=== PATIENT | female | born 2000 | race African-American/Black ===

== ENCOUNTER 2018-02-24 15:02 | Emergency (ER) | payer SELFPAY ==
[~2018-02-24] VITALS: Ht 162.6 cm; Wt 52.2 kg
[2018-02-24 15:39] LABS: Basophils # (auto) 0.1 uL; Basophils % (auto) 0.7 % (0.0-2.0); Eosinophils # (auto) 0 uL; Hematocrit 39.9 % (36.0-46.0); Hemoglobin 13.3 g/dL (12.2-16.2); Lymphocytes % (auto) 7.5 % (10.0-50.0); Mean Corpuscular Hemoglobin 30.2 pg (28.0-32.0); Mean Corpuscular Hgb Conc. 33.5 g/dL (32.0-36.0); Mean Corpuscular Volume 90.3 fL (80.0-100.0); Monocytes % (auto) 7.4 % (0.0-12.0); Neutrophils # (auto) 11.1 uL; Neutrophils % (auto) 84.4 % (37.0-80.0); Platelet Count (auto) 218 10^3/uL (140-450); Red Blood Cells 4.42 10^6/uL (4.0-5.20); Red Cell Distribution Width 13.8 % (11.8-14.3); White Blood Cell 13.2 10^3/uL (4.4-10.8)
[2018-02-24 15:51] LABS: Alanine Aminotransferase 27 U/L (13-56); Albumin 3.8 g/dL (3.4-5.0); Anion Gap 6 (5-15); Aspartate Aminotransferase 25 U/L (15-37); BUN/Creatinine Ratio 10.5; Blood Urea Nitrogen 11 mg/dL (7-18); Calcium 8.4 mg/dL (8.5-10.1); Carbon Dioxide 26 mmol/L (21-32); Chloride 105 mmol/L (98-107); GFR African American 87 mL/min; GFR Non-African American 72 mL/min; Glucose 103 mg/dL (74-106); Magnesium 2.4 mg/dL (1.6-2.6); Potassium 3.3 mmol/L (3.5-5.1); Sodium 137 mmol/L (136-145)
[2018-02-24 15:56] LABS: Alkaline Phosphatase 65 U/L (45-117); Bilirubin, Total 0.6 mg/dL (0.2-1.0); Total Protein 6.8 g/dL (6.4-8.2)
[2018-02-24 16:32] LABS: Urine Pregnacy Test Negative (Negative)
[2018-02-24 16:33] LABS: Urine Bacteria NONE SEEN /hpf (None Seen); Urine Blood Negative /uL (Negative); Urine Mucus FEW (None Seen); Urine Specific Gravity 1.018 (1.001-1.035); Urine WBC 3 /hpf (0 - 5)
[2018-02-24 16:46] LABS: Alcohol, Urine < 3.0 mg/dL (0-5); Amphetamine Screen, Urine NEGATIVE (NEGATIVE); Benzodiazephine Screen, Urine NEGATIVE (NEGATIVE); Cannabinoid Screen, Urine POSITIVE (NEGATIVE); Cocaine Screen, Urine NEGATIVE (NEGATIVE); Opiate Scree,Urine POSITIVE (NEGATIVE); Phencyclidine Screen, Urine NEGATIVE (NEGATIVE)
[2018-02-24 16:53] LABS: Barbiturate Scree,Urine NEGATIVE (NEGATIVE)
[2018-02-24] MEDS ORDERED: SODIUM CHLORIDE 0.9% 1,000 ML IV ONE (17:15)
[2018-02-24 19:30] VITALS: BP 100/64
== END 2018-02-24 20:14 | disposition home or self-care (01) ==
LOC: ER 15:02 → EDBD 15:02 → ER 20:14
DX: N39.0 Urinary tract infection, site not specified (principal); F12.10 Cannabis abuse, uncomplicated
CPT/HCPCS: 36415; 71046; 74176; 80053; 80307; 81001; 81025; 83735; 84484; 85025; 94761; 99285; J7030

== ENCOUNTER 2018-06-18 09:33 | Emergency (ER) | payer SELFPAY ==
[~2018-06-18] VITALS: Ht 160 cm; Wt 53.5 kg
[2018-06-18] MEDS ORDERED: SODIUM CHLORIDE 0.9% 1,000 ML IV ONE (09:49)
[2018-06-18] MEDS ORDERED: LORazepam 2MG/ML-1ML VIAL IV ONE (10:00)
[2018-06-18] MEDS ORDERED: ONDANSETRON HCL 4 MG/2 ML VIAL IV ONE (10:00)
[2018-06-18 10:06] LABS: Urine Pregnacy Test Negative (Negative)
[2018-06-18 10:07] LABS: Urine Bacteria FEW /hpf (None Seen); Urine Blood Negative /uL (Negative); Urine Mucus FEW (None Seen); Urine Specific Gravity 1.043 (1.001-1.035); Urine WBC 10 /hpf (0 - 5)
[2018-06-18 10:20] LABS: Alcohol, Urine < 3.0 mg/dL (0-5); Amphetamine Screen, Urine NEGATIVE (NEGATIVE); Barbiturate Scree,Urine NEGATIVE (NEGATIVE); Benzodiazephine Screen, Urine NEGATIVE (NEGATIVE); Cannabinoid Screen, Urine POSITIVE (NEGATIVE); Cocaine Screen, Urine NEGATIVE (NEGATIVE); Opiate Scree,Urine NEGATIVE (NEGATIVE); Phencyclidine Screen, Urine NEGATIVE (NEGATIVE)
[2018-06-18 10:29] LABS: Basophils # (auto) 0 uL; Basophils % (auto) 0.5 % (0.0-2.0); Eosinophils # (auto) 0 uL; Eosinophils % (auto) 0.1 % (0.0-7.0); Hematocrit 42.2 % (36.0-46.0); Hemoglobin 14.3 g/dL (12.2-16.2); Lymphocytes # (auto) 1.1 uL; Lymphocytes % (auto) 22.5 % (10.0-50.0); Mean Corpuscular Hemoglobin 30.2 pg (28.0-32.0); Mean Corpuscular Hgb Conc. 33.9 g/dL (32.0-36.0); Monocytes # (auto) 0.3 uL; Monocytes % (auto) 5.7 % (0.0-12.0); Neutrophils # (auto) 3.5 uL; Neutrophils % (auto) 71.2 % (37.0-80.0); Nucleated Red Blood Cells % 0.1 %; Platelet Count (auto) 336 10^3/uL (140-450); Red Blood Cells 4.74 10^6/uL (4.0-5.20); Red Cell Distribution Width 13.2 % (11.8-14.3)
[2018-06-18 10:41] LABS: Albumin 4.3 g/dL (3.4-5.0); Calcium 9.3 mg/dL (8.5-10.1); Potassium 3.7 mmol/L (3.5-5.1)
[2018-06-18 10:45] LABS: BUN/Creatinine Ratio 10.5; Bilirubin, Total 0.5 mg/dL (0.2-1.0); Total Protein 8.1 g/dL (6.4-8.2)
[2018-06-18 12:06] LABS: Acetaminophen 39.9 ug/mL (10-30); Salicylate < 1.7 mg/dL (2.8-20.0)
[2018-06-19] MEDS ORDERED: ACETAMINOPHEN 325 MG TAB PO ONE (08:36)
[2018-06-19] MEDS ORDERED: IBUPROFEN 600 MG TAB PO ONE (08:37)
[2018-06-19] MEDS ORDERED: IBUPROFEN 600 MG TAB PO PRN (08:45)
[2018-06-19 09:09] LABS: Basophils # (auto) 0 uL; Basophils % (auto) 0.4 % (0.0-2.0); Eosinophils # (auto) 0 uL; Eosinophils % (auto) 0.3 % (0.0-7.0); Hematocrit 37.8 % (36.0-46.0); Hemoglobin 12.8 g/dL (12.2-16.2); Lymphocytes # (auto) 1.5 uL; Lymphocytes % (auto) 27.2 % (10.0-50.0); Mean Corpuscular Hemoglobin 30.3 pg (28.0-32.0); Mean Corpuscular Hgb Conc. 33.9 g/dL (32.0-36.0); Mean Corpuscular Volume 89.3 fL (80.0-100.0); Monocytes # (auto) 0.3 uL; Monocytes % (auto) 5.5 % (0.0-12.0); Neutrophils # (auto) 3.7 uL; Neutrophils % (auto) 66.6 % (37.0-80.0); Platelet Count (auto) 261 10^3/uL (140-450); Red Blood Cells 4.24 10^6/uL (4.0-5.20); Red Cell Distribution Width 13.5 % (11.8-14.3); White Blood Cell 5.5 10^3/uL (4.4-10.8)
[2018-06-19 09:24] LABS: Albumin 3.4 g/dL (3.4-5.0); BUN/Creatinine Ratio 7.1; Calcium 8.5 mg/dL (8.5-10.1); Potassium 3.8 mmol/L (3.5-5.1)
[2018-06-19 09:26] LABS: Bilirubin, Total 0.3 mg/dL (0.2-1.0); Total Protein 6.7 g/dL (6.4-8.2)
[2018-06-19] MEDS: NITROFURANTOIN (MONO) 100 mg CAP PO SCH ×2 (10:29→22:00)
[2018-06-19 21:14] VITALS: BP 105/53
== END 2018-06-19 23:05 | disposition short-term general hospital (02) ==
LOC: ER 09:33
DX: R11.2 Nausea with vomiting, unspecified (principal); F41.9 Anxiety disorder, unspecified; F32.9 Major depressive disorder, single episode, unspecified; F12.10 Cannabis abuse, uncomplicated
CPT/HCPCS: 36415; 80053; 80307; 80329; 81001; 81025; 82150; 83690; 85025; 96361; 96374; 96375; 99285; J2060; J2405; J7030

== ENCOUNTER → 2021-06-18 | Outpatient (CLI) | payer MEDICAID ==
[2021-06-18 09:01] LABS: Basophils # (auto) 0 10 ^3/uL (0-0.2); Basophils % (auto) 0.3 % (0.0-2.0); Eosinophils # (auto) 0.1 10 ^3/uL (0-0.8); Eosinophils % (auto) 0.7 % (0.0-7.0); Hematocrit 35.7 % (36.0-46.0); Hemoglobin 12.4 g/dL (12.2-16.2); Lymphocytes # (auto) 1.3 10 ^3/uL (0.4-5.4); Lymphocytes % (auto) 15.7 % (10.0-50.0); Mean Corpuscular Hemoglobin 31.4 pg (28.0-32.0); Mean Corpuscular Hgb Conc. 34.6 g/dL (32.0-36.0); Mean Corpuscular Volume 90.7 fL (80.0-100.0); Monocytes # (auto) 0.3 10 ^3/uL (0-1.3); Monocytes % (auto) 3.4 % (0.0-12.0); Neutrophils # (auto) 6.4 10 ^3/uL (1.6-8.6); Neutrophils % (auto) 79.9 % (37.0-80.0); Red Blood Cells 3.94 10^6/uL (4.0-5.20); Red Cell Distribution Width 14.8 % (11.8-14.3); White Blood Cell 8.1 10^3/uL (4.4-10.8)
[2021-06-19 08:06] LABS: RPR Non Reactive (Non Reactive)
== END | disposition home or self-care (01) ==
LOC: LAB 07:42
PROVIDERS: ATTEND Obstetrics & Gynecology
DX: Z34.00 Encounter for supervision of normal first pregnancy, unspecified trimester (principal); N39.0 Urinary tract infection, site not specified; N36.0 Urethral fistula; Z31.430 Encounter of female for testing for genetic disease carrier status for procreative management
CPT/HCPCS: 36415; 83036; 84112; 84702; 85025; 86592; 86703; 86762; 86850; 86900; 86901; 87340

== ENCOUNTER → 2021-07-23 | Outpatient (CLI) | payer MEDICAID ==
[2021-07-23 10:36] LABS: Alcohol, Urine < 3.0 mg/dL (0-10); Amphetamine Screen, Urine NEGATIVE (NEGATIVE); Barbiturate Scree,Urine NEGATIVE (NEGATIVE); Benzodiazephine Screen, Urine NEGATIVE (NEGATIVE); Cannabinoid Screen, Urine POSITIVE (NEGATIVE); Cocaine Screen, Urine NEGATIVE (NEGATIVE); Opiate Scree,Urine NEGATIVE (NEGATIVE); Phencyclidine Screen, Urine NEGATIVE (NEGATIVE)
== END | disposition home or self-care (01) ==
LOC: LAB 09:41
PROVIDERS: ATTEND Obstetrics & Gynecology
DX: C34.80 Malignant neoplasm of overlapping sites of unspecified bronchus and lung (principal)
CPT/HCPCS: 80307; 87086

== ENCOUNTER 2021-10-28 14:17 | Observation (INO) | payer MEDICAID ==
[~2021-10-28] VITALS: Ht 162.6 cm; Wt 62.1 kg
[2021-10-28] MEDS ORDERED: LACTATED RINGER'S 1,000 ML IV ONE (15:15)
[2021-10-28 15:27] LABS: Urine Bacteria FEW /hpf (None Seen); Urine Blood Negative /uL (Negative); Urine Specific Gravity 1.004 (1.001-1.035); Urine WBC 2 /hpf (0 - 5)
[2021-10-28 15:35] LABS: Alcohol, Urine < 3.0 mg/dL (0-10); Amphetamine Screen, Urine NEGATIVE (NEGATIVE); Barbiturate Scree,Urine NEGATIVE (NEGATIVE); Benzodiazephine Screen, Urine NEGATIVE (NEGATIVE); Cannabinoid Screen, Urine POSITIVE (NEGATIVE); Cocaine Screen, Urine NEGATIVE (NEGATIVE); Opiate Scree,Urine NEGATIVE (NEGATIVE); Phencyclidine Screen, Urine NEGATIVE (NEGATIVE)
[2021-10-28] MEDS ORDERED: PREN-96 PO (15:59)
== END 2021-10-28 17:40 | disposition home or self-care (01) ==
LOC: UNDOADMOB 14:17 → LDRP 14:17
PROVIDERS: ADMIT Obstetrics & Gynecology; ATTEND Obstetrics & Gynecology
DX: O62.9 Abnormality of forces of labor, unspecified (principal); O99.891 Other specified diseases and conditions complicating pregnancy; M54.9 Dorsalgia, unspecified; O26.893 Other specified pregnancy related conditions, third trimester; R51.9 Headache, unspecified; R42 Dizziness and giddiness; N89.8 Other specified noninflammatory disorders of vagina; Z3A.29 29 weeks gestation of pregnancy; Z79.899 Other long term (current) drug therapy; Z98.890 Other specified postprocedural states
CPT/HCPCS: 59025; 76705; 76815; 76817; 80307; 81001; 81002; 82948; 82962; 84112; 94760; 96360; G0378; Q0114

== ENCOUNTER → 2021-11-05 | Outpatient (CLI) | payer MEDICAID ==
[~2021-11-05] MED LIST: PREN-96 PO
[2021-11-05 10:51] LABS: Basophils # (auto) 0 10 ^3/uL (0-0.2); Basophils % (auto) 0.2 % (0.0-2.0); Eosinophils # (auto) 0.1 10 ^3/uL (0-0.8); Eosinophils % (auto) 1.3 % (0.0-7.0); Hemoglobin 16.5 g/dL (12.2-16.2); Lymphocytes % (auto) 14.6 % (10.0-50.0); Mean Corpuscular Hemoglobin 28.9 pg (28.0-32.0); Mean Corpuscular Hgb Conc. 32.9 g/dL (32.0-36.0); Mean Corpuscular Volume 87.9 fL (80.0-100.0); Monocytes # (auto) 0.4 10 ^3/uL (0-1.3); Monocytes % (auto) 6.4 % (0.0-12.0); Neutrophils # (auto) 5.1 10 ^3/uL (1.6-8.6); Neutrophils % (auto) 77.5 % (37.0-80.0); Nucleated Red Blood Cells % 0.1 %; Red Blood Cells 5.69 10^6/uL (4.0-5.20); Red Cell Distribution Width 14.4 % (11.8-14.3); White Blood Cell 6.6 10^3/uL (4.4-10.8)
== END | disposition home or self-care (01) ==
LOC: LAB 10:02
PROVIDERS: ATTEND Obstetrics & Gynecology
DX: Z34.80 Encounter for supervision of other normal pregnancy, unspecified trimester (principal); O99.810 Abnormal glucose complicating pregnancy
CPT/HCPCS: 36415; 82951; 83036; 85025

== ENCOUNTER 2021-11-22 10:52 | Observation (INO) | payer MEDICAID ==
[2021-11-22] MEDS ORDERED: LACTATED RINGER'S 1,000 ML IV ONE (11:30)
[2021-11-22] MEDS: TERBUTALINE SULFATE 1 MG/ML 1ML VIAL SC SCH ×2 (11:51→13:58)
== END 2021-11-22 15:00 | disposition home or self-care (01) ==
LOC: LDRP 10:52
PROVIDERS: ADMIT Obstetrics & Gynecology; ATTEND Obstetrics & Gynecology
DX: O47.03 False labor before 37 completed weeks of gestation, third trimester (principal); O62.9 Abnormality of forces of labor, unspecified; O99.891 Other specified diseases and conditions complicating pregnancy; M54.9 Dorsalgia, unspecified; Z3A.33 33 weeks gestation of pregnancy
CPT/HCPCS: 59025; 81002; 94760; 96360; 96361; 96372; G0378; J3105; 96375

== ENCOUNTER → 2021-12-03 | Outpatient (CLI) | payer MEDICAID ==
[2021-12-03 10:51] LABS: Basophils # (auto) 0 10 ^3/uL (0-0.2); Basophils % (auto) 0.2 % (0.0-2.0); Eosinophils # (auto) 0 10 ^3/uL (0-0.8); Eosinophils % (auto) 0.5 % (0.0-7.0); Hematocrit 33.4 % (36.0-46.0); Hemoglobin 10.9 g/dL (12.2-16.2); Lymphocytes # (auto) 1.2 10 ^3/uL (0.4-5.4); Lymphocytes % (auto) 11.7 % (10.0-50.0); Mean Corpuscular Hemoglobin 27.7 pg (28.0-32.0); Mean Corpuscular Hgb Conc. 32.5 g/dL (32.0-36.0); Mean Corpuscular Volume 85.1 fL (80.0-100.0); Monocytes # (auto) 0.7 10 ^3/uL (0-1.3); Monocytes % (auto) 6.4 % (0.0-12.0); Neutrophils # (auto) 8.5 10 ^3/uL (1.6-8.6); Neutrophils % (auto) 81.2 % (37.0-80.0); Red Blood Cells 3.93 10^6/uL (4.0-5.20); Red Cell Distribution Width 14.6 % (11.8-14.3); White Blood Cell 10.4 10^3/uL (4.4-10.8)
[2021-12-04 08:06] LABS: RPR Non Reactive (Non Reactive)
== END | disposition home or self-care (01) ==
LOC: LAB 10:27
PROVIDERS: ATTEND Obstetrics & Gynecology
DX: O99.810 Abnormal glucose complicating pregnancy (principal); Z3A.00 Weeks of gestation of pregnancy not specified
CPT/HCPCS: 36415; 84112; 85025; 86592

== ENCOUNTER → 2021-12-10 | Outpatient (CLI) | payer MEDICAID ==
[2021-12-10 14:07] LABS: Amphetamine Screen, Urine NEGATIVE (NEGATIVE); Barbiturate Scree,Urine NEGATIVE (NEGATIVE); Benzodiazephine Screen, Urine NEGATIVE (NEGATIVE); Cannabinoid Screen, Urine NEGATIVE (NEGATIVE); Cocaine Screen, Urine NEGATIVE (NEGATIVE); Opiate Scree,Urine NEGATIVE (NEGATIVE); Phencyclidine Screen, Urine NEGATIVE (NEGATIVE)
== END | disposition home or self-care (01) ==
LOC: LAB 12:51
PROVIDERS: ATTEND Obstetrics & Gynecology
DX: Z11.3 Encounter for screening for infections with a predominantly sexual mode of transmission (principal)
CPT/HCPCS: 80307

== ENCOUNTER 2021-12-27 18:58 | Observation (INO) | payer MEDICAID | END 2021-12-27 20:28 | disposition home or self-care (01) | LOC: LDRP 18:58 | PROVIDERS: ADMIT Obstetrics & Gynecology; ATTEND Obstetrics & Gynecology | DX: O12.03 Gestational edema, third trimester (principal); O62.9 Abnormality of forces of labor, unspecified; Z3A.38 38 weeks gestation of pregnancy | CPT/HCPCS: 59025; 81002; G0378 ==

== ENCOUNTER 2022-01-04 06:53 | Inpatient (IN) | payer MEDICAID ==
[~2022-01-04] VITALS: Ht 160 cm; Wt 85.3 kg
[2022-01-04] MEDS ORDERED: PHISODERM TOP SOLN 240ML BTL TOP PRN (07:15)
[2022-01-04] MEDS ORDERED: WITCH HAZEL-GLYCERIN PAD TOP PRN (07:15)
[2022-01-04] MEDS ORDERED: DERMOPLAST 60ML BOTTLE TOP PRN (07:15)
[2022-01-04] MEDS ORDERED: PROMETHAZINE HCL 25 MG/ML 1ML IV PRN (07:15)
[2022-01-04] MEDS ORDERED: LACT. RINGERS/OXYTOCIN 20UNITS 500 ML IV ONE ×2 (07:15→07:45)
[2022-01-04] MEDS ORDERED: BUTORPHANOL TARTRATE 2 MG/1 ML VIAL IV PRN ×2 (07:15)
[2022-01-04] MEDS ORDERED: LIDOCAINE 2%HCL (LOCAL ANESTH.) INJ 10ml MDV IJ PRN (07:15)
[2022-01-04 07:49] LABS: Basophils # (auto) 0 10 ^3/uL (0-0.2); Basophils % (auto) 0.3 % (0.0-2.0); Eosinophils # (auto) 0.1 10 ^3/uL (0-0.8); Eosinophils % (auto) 1.4 % (0.0-7.0); Hematocrit 31.6 % (36.0-46.0); Lymphocytes # (auto) 1.4 10 ^3/uL (0.4-5.4); Lymphocytes % (auto) 15.3 % (10.0-50.0); Nucleated Red Blood Cells % 0.7 %
[2022-01-04 07:50] LABS: Hemoglobin 10.2 g/dL (12.2-16.2); Mean Corpuscular Hemoglobin 27.1 pg (28.0-32.0); Mean Corpuscular Hgb Conc. 32.2 g/dL (32.0-36.0); Mean Corpuscular Volume 84.1 fL (80.0-100.0); Monocytes # (auto) 0.4 10 ^3/uL (0-1.3); Monocytes % (auto) 4.8 % (0.0-12.0); Neutrophils # (auto) 7.1 10 ^3/uL (1.6-8.6); Neutrophils % (auto) 78.2 % (37.0-80.0); Red Blood Cells 3.76 10^6/uL (4.0-5.20); Red Cell Distribution Width 15.8 % (11.8-14.3); White Blood Cell 9.1 10^3/uL (4.4-10.8)
[2022-01-04 07:59] LABS: Urine Bacteria FEW /hpf (None Seen); Urine Blood Negative /uL (Negative); Urine Specific Gravity 1.002 (1.001-1.035); Urine WBC 2 /hpf (0 - 5)
[2022-01-04 08:04] LABS: INR 0.91 (0.9-1.15); Partial Thromboplastin Time 26.2 sec (24.6-33.4)
[2022-01-04 08:27] LABS: Albumin 2.3 g/dL (3.4-5.0); Calcium 8.6 mg/dL (8.5-10.1); Potassium 3.6 mmol/L (3.5-5.1)
[2022-01-04 08:31] LABS: BUN/Creatinine Ratio 7.8; Bilirubin, Total 0.2 mg/dL (0.2-1.0); Total Protein 6.5 g/dL (6.4-8.2)
[2022-01-04] MEDS: LACTATED RINGER'S 1,000 ML IV SCH ×2 (10:28→20:38)
[2022-01-04 10:47] LABS: Alcohol, Urine < 3.0 mg/dL (0-10); Amphetamine Screen, Urine NEGATIVE (NEGATIVE); Barbiturate Scree,Urine NEGATIVE (NEGATIVE); Benzodiazephine Screen, Urine NEGATIVE (NEGATIVE); Cannabinoid Screen, Urine NEGATIVE (NEGATIVE); Cocaine Screen, Urine NEGATIVE (NEGATIVE); Opiate Scree,Urine NEGATIVE (NEGATIVE); Phencyclidine Screen, Urine NEGATIVE (NEGATIVE)
[2022-01-04] MEDS: miSOPROStol 50 MCG per PRE-CUT 1/2 TAB PO PRN ×2 (14:46→23:23)
[2022-01-05] MEDS: miSOPROStol 50 MCG per PRE-CUT 1/2 TAB PO PRN (03:28)
[2022-01-05] MEDS ORDERED: TERBUTALINE SULFATE 1 MG/ML 1ML VIAL SC PRN (12:30)
[2022-01-05] MEDS: LACTATED RINGER'S 1,000 ML IV SCH ×2 (12:30→19:27)
[2022-01-05] MEDS ORDERED: LACT. RINGERS/OXYTOCIN 20UNITS 1,000 ML IV SCH (12:30)
[2022-01-05] MEDS ORDERED: ePHEDrine SULFATE 50 MG/ML AMP IV ONE (17:15)
[2022-01-05] MEDS ORDERED: ROPIVACAINE HCL 200 ML EPI SCH (17:15)
[2022-01-05] MEDS ORDERED: LIDOCAINE HCL 2 %PF INJ 10ML AMP IJ ONE (17:15)
[2022-01-05] MEDS ORDERED: NALOXONE HCL 0.4 MG/ML VIAL IV ONE (17:15)
[2022-01-05] MEDS ORDERED: fentaNYL CITRATE 100 MCG/2 ML VL IV ONE (17:15)
[2022-01-05] MEDS ORDERED: LIDOCAINE 1%-Mpf/Epinephrine 1:200,000 IJ ONE (18:00)
[2022-01-05] MEDS ORDERED: LIDOCAINE 1%-Mpf/Epinephrine 1:200,000 ONE (18:04)
[2022-01-05] MEDS ORDERED: LIDOCAINE 2%HCL (LOCAL ANESTH.) INJ 10ml MDV IJ PRN (22:30)
[2022-01-05] MEDS ORDERED: LIDOCAINE 2%HCL (LOCAL ANESTH.) INJ 20ML MDV ONE (23:24)
[2022-01-06] MEDS ORDERED: LIDOCAINE HCL 2 %PF INJ 10ML AMP IJ ONE (02:15)
[2022-01-06] MEDS ORDERED: fentaNYL CITRATE 100 MCG/2 ML VL IV ONE (02:15)
[2022-01-06] MEDS: LACTATED RINGER'S 1,000 ML IV SCH (02:22)
[2022-01-06 08:06] LABS: RPR Non Reactive (Non Reactive)
[2022-01-06] MEDS ORDERED: SODIUM CHLORIDE 0.9% 1,000 ML IV SCH (08:15)
[2022-01-06] MEDS ORDERED: ceFAZolin 2 GM in D5W 5% 100 ML IV ONE (09:15)
[2022-01-06] MEDS ORDERED: ROPIVACAINE HCL 200 ML EPI SCH (09:45)
[2022-01-06] MEDS ORDERED: METHYLERGONOVINE MALEATE 0.2 MG/ML AMP IM ONE ×2 (12:06→12:15)
[2022-01-06] MEDS ORDERED: ONDANSETRON ODT 4 MG TAB PO PRN (14:30)
[2022-01-06 15:00] VITALS: BP 111/60
[2022-01-06] MEDS: IBUPROFEN 600 MG TAB PO PRN ×2 (15:54→22:29)
[2022-01-06] MEDS: ceFAZolin 1GM/50ML 50 ML IV SCH (18:06)
[2022-01-06 19:20] VITALS: BP 105/57
[2022-01-06] MEDS: ACETAMINOPHEN 325 MG TAB PO PRN (20:04)
[2022-01-06] MEDS ORDERED: DOCUSATE SOD 100 MG CAP PO SCH (22:00)
[2022-01-06 22:33] VITALS: BP 118/66
[2022-01-07] MEDS: ceFAZolin 1GM/50ML 50 ML IV SCH ×2 (02:27→09:48)
[2022-01-07] MEDS: ACETAMINOPHEN 325 MG TAB PO PRN ×2 (02:28→12:05)
[2022-01-07 03:04] VITALS: BP 99/57
[2022-01-07 07:00] VITALS: BP 102/52
[2022-01-07] MEDS: IBUPROFEN 600 MG TAB PO PRN (07:05)
[2022-01-07 11:00] VITALS: BP 105/58
[2022-01-07] MEDS ORDERED: TETANUS-DIPTH-ACEL PERTUSSIS 0.5ML SYR Tdap IM ONE (11:00)
== END 2022-01-07 16:00 | disposition home or self-care (01) | DRG 560 ==
LOC: LDRP 06:53
PROVIDERS: ADMIT Obstetrics & Gynecology; ATTEND Obstetrics & Gynecology
PROC: 10E0XZZ Delivery of Products of Conception, External Approach (ICD-10-PCS; principal; 2022-01-06)
PROC: 0KQM0ZZ Repair Perineum Muscle, Open Approach (ICD-10-PCS; 2022-01-06)
PROC: 0UQMXZZ Repair Vulva, External Approach (ICD-10-PCS; 2022-01-06)
PROC: 3E0R3BZ Introduction of Anesthetic Agent into Spinal Canal, Percutaneous Approach (ICD-10-PCS; 2022-01-06)
PROC: 00HU33Z Insertion of Infusion Device into Spinal Canal, Percutaneous Approach (ICD-10-PCS; 2022-01-06)
PROC: 3E0234Z Introduction of Serum, Toxoid and Vaccine into Muscle, Percutaneous Approach (ICD-10-PCS; 2022-01-07)
DX: O70.1 Second degree perineal laceration during delivery (principal); Z37.0 Single live birth; O71.82 Other specified trauma to perineum and vulva; Z3A.39 39 weeks gestation of pregnancy; Z20.822 Contact with and (suspected) exposure to COVID-19
CPT/HCPCS: 36415; 59025; 59200; 59409; 62282; 80053; 80307; 81001; 81002; 82962; 85025; 85610; 85730; 86592; 86703; 86850; 86900; 86901; 87340; 90715; 94760; 94762; 96360; 96361; 96365; 96366; 96372; 96374; 96375; G0378; J0690; J2590; J7060

== ENCOUNTER → 2022-03-03 | Outpatient (CLI) | payer MEDICAID | END | disposition home or self-care (01) | LOC: LAB 08:45 | PROVIDERS: ATTEND Obstetrics & Gynecology | DX: N91.2 Amenorrhea, unspecified (principal) | CPT/HCPCS: 36415; 84702 ==